=== PATIENT | female | born 1980 | race African-American/Black ===

== ENCOUNTER 2016-05-26 18:59 | Emergency (ER) | payer SELFPAY ==
[~2016-05-26] VITALS: Ht 180.3 cm; Wt 136.0 kg
[~2016-05-26 18:59] MED LIST: BACT800T5 PO; CEPH500C3 PO; IBUP800T23 PO; IMOD2TAB PO; ONDA4
[2016-05-26 19:02] VITALS: BP 163/78; PULSE 87; RESP 18; TEMP 98.7; O2SAT 100
[2016-05-27 02:48] LABS: BACTERIA, URINE MOD /hpf; BLOOD, URINE NEG (NEG); COMMENT (UR) CULTURE INDICATED; CULTURE IF INDICATED CULTURE INDICATED; GLUCOSE,URINE NEG (NEG); KETONE, URINE NEG (NEG); MUCUS URINE FEW /lpf (OCC); NITRITE,URINE NEG (NEG); PH, URINE 6.5 (5.0-8.5); SQUAMOUS EPITHELIAL CELL URINE 2 /hpf (0-5); URINE COLOR YELLOW (YELLW/STRAW)
[2016-05-27] MEDS ORDERED: LIDOCAINE HCL 1% 50 ML VIAL IM ONE (03:00)
[2016-05-27] MEDS ORDERED: AZITHROMYCIN PWD FOR SUSP 1 GM PACKET PO ONE (03:00)
--- NOTE | 2016-05-27 03:16 | PD ---
HPI Chief Complaint: Abdominal Pain Time Seen by Provider: 02:59 Travel History International Travel<30 days: No Contact w/Intl Traveler<30days: No Traveled to known affect area: No History of Present Illness HPI The patient is a 36 year old female who presents to the [facility] emergency department with a history of pelvic pressure and aching that she reports began 2 days after having unprotected intercourse. She reports that she then began to have vaginal discharge that was yellow to green in color with an odor. The patient reports that the pain has gradually gotten worse with time. She denies having any fevers associated with it. The patient reports having dysuria with urinary urgency and frequency associated with this. She denies having any back pain. The patient denies any cough, congestion, neck pain , chest pain, shortness of breath, vomiting, diarrhea, or neurologic symptoms. LMP: 3 weeks ago PFSH Past Medical History Narrative Medical The patient's past medical history is significant for fibroids, tobacco abuse Anemia: Yes Diminished Hearing: No Reproductive: Yes (uterine fibroids ) Tetanus Vaccination: < 5 Years Influenza Vaccination: No ?: Unknown Menopausal: No : 2 Para: 2 Tubal Ligation: Yes Past Surgical History Narrative Surgical The patient's past surgical history is significant for 2 prior C-sections, bilateral tubal ligation, cholecystectomy. Section: Yes (2) Cholecystectomy: Yes (2003) Social History Alcohol Use: No Tobacco Use: Yes (1-1/2 packs per day) Substance Use: No Allergies-Medications (Allergen,Severity, Reaction): Coded Allergies: Naproxen (Verified Allergy, Severe, Hives, swelling, 05/26/16) Reported Meds & Prescriptions Reported Meds & Active Scripts Active Bactrim DS (Sulfamethoxazole-Trimethoprim) 800-160 Mg Tab 1 Tab PO BID Flagyl (Metronidazole) 500 Mg Tab 500 Mg PO BID 7 Days Review of Systems Except as stated in HPI: all other systems reviewed are Neg General / Constitutional: No: Fever Eyes: No: Visual changes HENT: No: Headaches Cardiovascular: No: Chest Pain or Discomfort Respiratory: No: Shortness of Breath Gastrointestinal: Positive: Abdominal Pain, No: Nausea, Vomiting, Diarrhea, Changes in Bowel Habits, Indigestion, Loss of Appetite Genitourinary: Positive: Urgency, Frequency, Dysuria, Pelvic Pain, Discharge, No: Flank Pain Musculoskeletal: No: Pain Skin: No Rash Neurologic: No: Weakness Psychiatric: No: Depression Endocrine: No: Polydipsia Hematologic/Lymphatic: No: Easy Bruising Physical Exam Narrative General: The patient is a well-developed well-nourished female in no acute distress. Head and Neck exam: Head is normocephalic atraumatic. Eyes: Pupils are equal round and reactive to light. Nose: Midline septum with pink mucous membranes Mouth: Dentition unremarkable. Moist mucus membranes. Posterior oropharynx is not erythematous. No tonsillar hypertrophy. Uvula midline. Airway patent. Neck: No palpable lymphadenopathy. No nuchal rigidity. No thyromegaly. Cardiovascular: Regular rate and rhythm without murmurs, gallops, or rubs. No pulse deficit to the extremities. Lungs: Clear to auscultation bilaterally. No wheezes, rhonchi, or rales. Abdomen: Soft, with tenderness on palpation in the suprapubic area and bilateral lower quadrants of the abdomen, pelvic area. No tenderness specifically over McBurney 's point. Negative Hamm's sign. No guarding, rebound, or rigidity. Normal bowel sounds are audible. Extremities: No clubbing, cyanosis, or edema. Back: No spinous process tenderness to palpation. No costovertebral angle tenderness to palpation. Neurologic Exam: Grossly nonfocal Skin Exam: No rash noted. Intact skin that is warm and dry. Gynecologic exam: The patient was placed in the dorsal lithotomy position. Her external genitalia were examined. She had no evidence of rash or lesions. The speculum was placed into her vagina and the cervix was identified. She had a physiologic appearing and thick white discharge slightly discolored to yellow with cervical friability. On Bimanual exam: she has no cervical motion tenderness. No adnexal tenderness or prominence noted on palpation. No uterine tenderness or enlargement noted on palpation. Data Data Last Documented VS Vital Signs Date Time Temp Pulse Resp B/P Pulse Ox O2 Delivery O2 Flow Rate FiO2 05/26/16 20:48 16 05/26/16 19:02 98.7 87 163/78 100 Orders Urinalysis - C+S If Indicated (05/27/16 02:08) Gc And Chlamydia Pcr (05/27/16 02:18) Urine Culture (05/27/16 02:20) Wet Prep Profile (05/27/16 03:00) Azithromycin Powd Pack (Zithromax Powd P (05/27/16 03:00) Lidocaine 1% Inj (50 Ml) (Xylocaine 1% I (05/27/16 03:00) Ceftriaxone Inj (Rocephin Inj) (05/27/16 03:00) Ed Urine Pregnancytest Poc (05/27/16 03:16) Acetaminophen (Tylenol) (05/27/16 04:00) Labs Laboratory Tests Test 05/27/16 05/27/16 02:20 03:40 Urine Color YELLOW Urine Turbidity HAZY Urine pH 6.5 Urine Specific [place] 1.024 Urine Protein TRACE mg/dL Urine Glucose (UA) NEG mg/dL Urine Ketones NEG mg/dL Urine Occult Blood NEG Urine Nitrite NEG Urine Bilirubin NEG Urine Urobilinogen LESS THAN 2.0 MG/DL Urine Leukocyte Esterase LARGE Urine RBC 9 /hpf Urine WBC 49 /hpf Urine WBC Clumps OCC Urine Squamous Epithelial 2 /hpf Cells Urine Bacteria MOD /hpf Urine Mucus FEW /lpf Microscopic Urinalysis Comment CULTURE INDICATED Clue Cells (Wet Prep) NONE SEEN Vaginal Trichomonas (Wet Prep) PRESENT Vaginal Yeast (Wet Prep) NONE SEEN MDM Medical Decision Making Medical Screen Exam Complete: Yes Emergency Medical Condition: Yes Medical Record Reviewed: Yes Differential Diagnosis Gonorrhea versus chlamydia, versus trichomoniasis, versus bacterial vaginosis, versus PID, versus ectopic Narrative Course During the course of the patients emergency department visit, the patients history, examination, and differential diagnosis were reviewed with the patient. The patient had a [id number] test done that was negative, urine sent for analysis. GC and chlamydia and wet prep were sent after pelvic examination was done. The patient's pelvic examination was remarkable for cervicitis with a white discharge. The patient was given Rocephin 1 g IM as her urinalysis shows evidence of a urinary tract infection, and Zithromax 1 g by mouth for coverage of gonorrhea and chlamydia by both of these antibiotic. The patients laboratory studies were reviewed and remarkable for a wet prep that is positive for trichomoniasis. Urinalysis reveals evidence of a urinary tract infection. The patient will be discharged home with Bactrim and Flagyl. The patient is encouraged to use condoms for the prevention of sexually transmitted infections. The patient is resting comfortably and feels better, is alert and in no distress. The patients results and examination findings were discussed with the patient. The repeat examination is unremarkable and benign. The history, exam, diagnostic testing, and current condition do not suggest any significant pathology to warrant further testing, continued ED treatment, admission, or surgical evaluation at this point. The vital signs have been stable. The patient does not have uncontrollable pain, intractable vomiting, or other significant symptoms. The patient's condition is stable and appropriate for discharge. The patient will pursue further outpatient evaluation with a primary care physician or other designated or consulting physician as indicated in the discharge instructions. The patient expressed understanding and was agreeable with this plan. Diagnosis Primary Impression: Cervicitis Additional Impressions: Trichomoniasis Urinary tract infection Qualified Code: N30.00 - Acute cystitis without hematuria Referrals: [facility] Dept. Patient Instructions: Cervicitis (ED), General Instructions, Trichomoniasis (ED ), Urinary Tract Infection in Women (ED) Med/Other Pt SpecificInfo: Prescription(s) given Scripts Sulfamethoxazole-Trimethoprim (Bactrim DS)800-160 Mg Tab1 Tab PO BID #20 TAB Ref 0 Prov:Doris Escobar MD 05/27/16 Metronidazole (Flagyl)500 Mg [id number] Mg PO BID 7 Days Ref 0 Prov:Doris Escobar MD 05/27/16 Disposition: 01 DISCHARGE HOME Condition: Stable Doris Escobar MD May 27, 2016 03:16
[2016-05-27] MEDS ORDERED: ACETAMINOPHEN 325 MG TAB PO ONE (04:00)
[2016-05-27] MEDS ORDERED: METR-1 PO (04:13)
[2016-05-27] MEDS ORDERED: BACT800T5 PO (04:13)
[2016-05-27 04:39] LABS: CHLAMYDIA PCR NOT DETECTED (NOT DETECT); NEISSERIA PCR NOT DETECTED (NOT DETECT)
== END 2016-05-27 04:40 | disposition home or self-care (01) ==
LOC: NEPE 18:59
DX: N72 Inflammatory disease of cervix uteri (principal); A59.9 Trichomoniasis, unspecified; N30.00 Acute cystitis without hematuria; B96.89 Other specified bacterial agents as the cause of diseases classified elsewhere
CPT/HCPCS: 81001; 84703; 87086; 87210; 87491; 87591; 96372; 99284; J0696

== ENCOUNTER 2016-06-14 09:42 | Inpatient (IN) | payer SELFPAY ==
[~2016-06-14] VITALS: Ht 180.3 cm; Wt 120.3 kg
[~2016-06-14 09:42] MED LIST changes: -CEPH500C3 PO; -IBUP800T23 PO; -IMOD2TAB PO; +METR-1 PO; -ONDA4
[2016-06-14 09:44] VITALS: BP 124/67; PULSE 118; RESP 22; TEMP 97.8; O2SAT 98
[2016-06-14] MEDS ORDERED: LORazepam 1 MG TAB PO ONE (10:15)
--- NOTE | 2016-06-14 10:20 | PD ---
HPI Chief Complaint: Psychiatric Symptoms Time Seen by Provider: 10:08 Travel History International Travel<30 days: No Contact w/Intl Traveler<30days: No Traveled to known affect area: No History of Present Illness HPI The patient was seen and examined in the presence of the nurse. This patient is brought in by family members for psychiatric evaluation. She reports history of bipolar disorder. Very limited ability to provide history or review of systems. She is appearing to be actively psychotic. She reports that she is hearing voices. She denies feeling suicidal. Denies any specific physical complaint. Symptoms are moderate to severe in nature. Duration is unknown as she ignores the question. No alleviating factors. PFSH Past Medical History Anemia: Yes Bipolar Disorder: Yes Anxiety: Yes Depression: Yes Diminished Hearing: No Reproductive: Yes (uterine fibroids ) Schizophrenia: Yes Influenza Vaccination: No ?: Unknown Menopausal: No : 2 Para: 2 Tubal Ligation: Yes Past Surgical History Section: Yes (2) Cholecystectomy: Yes (2003) Social History Alcohol Use: No Tobacco Use: Yes (1-1/2 packs per day) Substance Use: No (FORMERLY COCAINE AND MARIJUANA) Allergies-Medications (Allergen,Severity, Reaction): Coded Allergies: Naproxen (Verified Allergy, Severe, Hives, swelling, 06/14/16) Reported Meds & Prescriptions Reported Meds & Active Scripts Active No Active Prescriptions or Reported Medications Review of Systems ROS Limitations: Altered Mental Status, Uncooperative, Psychotic, Poor Historian Physical Exam Narrative GENERAL: Well-nourished, well-developed patient in no apparent distress. SKIN: Warm and dry. HEAD: Atraumatic. Normocephalic. EYES: Pupils equal and round. No scleral icterus. No injection or drainage. ENT: No nasal bleeding or discharge. Mucous membranes pink and moist. NECK: Trachea midline. No JVD. CARDIOVASCULAR: Regular rate and rhythm. No murmur appreciated. RESPIRATORY: No accessory muscle use. Clear to auscultation. Breath sounds equal bilaterally. GASTROINTESTINAL: Abdomen soft, non-tender, nondistended. Hepatic and splenic margins not palpable. MUSCULOSKELETAL: No obvious deformities. No clubbing. No cyanosis. No edema. NEUROLOGICAL: Awake and alert. No obvious cranial nerve deficits. Motor grossly within normal limits. Pressured but understandable speech. PSYCHIATRIC: Somewhat agitated mood and affect; insight and judgment poor. Data Data Last Documented VS Vital Signs Date Time Temp Pulse Resp B/P Pulse Ox O2 Delivery O2 Flow Rate FiO2 06/14/16 09:44 97.8 118 22 124/67 98 Orders Complete Blood Count With Diff (06/14/16 10:14) Basic Metabolic Panel (Bmp) (06/14/16 10:14) Ed Urine Pregnancytest Poc (06/14/16 10:14) Psych Screen (06/14/16 10:14) Drug Screen, Random Urine (06/14/16 10:14) Alcohol (Ethanol) (06/14/16 10:14) Lorazepam (Ativan) (06/14/16 10:15) Labs Laboratory Tests Test 06/14/16 10:15 White Blood Count 8.0 TH/MM3 Red Blood Count 4.67 MIL/MM3 Hemoglobin 11.1 GM/DL Hematocrit 34.0 % Mean Corpuscular Volume 72.7 FL Mean Corpuscular Hemoglobin 23.7 PG Mean Corpuscular Hemoglobin 32.6 % Concent Red Cell Distribution Width 14.7 % Platelet Count 240 TH/MM3 Mean Platelet Volume 8.1 FL Neutrophils (%) (Auto) 71.0 % Lymphocytes (%) (Auto) 20.5 % Monocytes (%) (Auto) 6.2 % Eosinophils (%) (Auto) 1.6 % Basophils (%) (Auto) 0.7 % Neutrophils # (Auto) 5.7 TH/MM3 Lymphocytes # (Auto) 1.6 TH/MM3 Monocytes # (Auto) 0.5 TH/MM3 Eosinophils # (Auto) 0.1 TH/MM3 Basophils # (Auto) 0.1 TH/MM3 CBC Comment AUTO DIFF Differential Comment AUTO DIFF CONFIRMED Platelet Estimate NORMAL Platelet Morphology Comment NORMAL Target Cells 2+ Sodium Level 138 MEQ/L Potassium Level 3.9 MEQ/L Chloride Level 104 MEQ/L Carbon Dioxide Level 24.6 MEQ/L Anion Gap 9 MEQ/L Blood Urea Nitrogen 8 MG/DL Creatinine 0.71 MG/DL Estimat Glomerular Filtration 111 ML/MIN Rate Random Glucose 93 MG/DL Calcium Level 8.8 MG/DL Urine Opiates Screen POS Urine Barbiturates Screen NEG Urine Amphetamines Screen NEG Urine Benzodiazepines Screen NEG Urine Cocaine Screen POS Urine Cannabinoids Screen NEG Ethyl Alcohol Level LESS THAN 3 MG/DL MDM Medical Decision Making Medical Screen Exam Complete: Yes Emergency Medical Condition: Yes Medical Record Reviewed: Yes Differential Diagnosis Psychosis, bipolar exacerbation, adjustment disorder Narrative Course I have reviewed the patient's electronic medical record. Patient was seen here last year getting colposcopy and cone biopsy I've ordered a medical screening workup CBC is normal Metabolic profile is normal Urine is negative Toxicology screen is positive for cocaine Alcohol level is negative I gave her 2 mg oral Ativan to help calm her down I've ordered psychiatric evaluation On recheck she is calmer after Ativan. It seems like she has a combination of psychiatric and substance abuse problems. She is is medically stable as can be made. Disposition will be per psychiatry after screening. Scripts No Active Prescriptions or Reported Meds Chet Ulloa MD Jun 14, 2016 10:19
[2016-06-14 10:34] LABS: AUTOMATED NEUTROPHIL # 5.7 TH/MM3 (1.8-7.7); BASOPHIL # 0.1 TH/MM3 (0-0.2); BASOPHIL % 0.7 % (0.0-2.0); EOSINOPHIL # 0.1 TH/MM3 (0-0.4); EOSINOPHIL % 1.6 % (0.0-4.0); LYMPH % 20.5 % (9.0-44.0); LYMPHOCYTE # 1.6 TH/MM3 (1.0-4.8); MEAN CELL VOLUME 72.7 FL (80.0-100.0); MEAN CORPUSCULAR HEMOGLOBIN 23.7 PG (27.0-34.0); MEAN CORPUSCULAR HGB CONC 32.6 % (32.0-36.0); MONO % 6.2 % (0.0-8.0); PLATELET COUNT 240 TH/MM3 (150-450); RED BLOOD COUNT 4.67 MIL/MM3 (4.00-5.30); RED CELL DISTRIBUTION WIDTH 14.7 % (11.6-17.2)
[2016-06-14 10:35] LABS: HEMO FLAGS AUTO DIFF
[2016-06-14 10:42] LABS: AMPHETAMINE, URINE NEG (NEG); BARBITURATES, URINE NEG (NEG); COCAINE, URINE POS (NEG)
[2016-06-14 10:52] LABS: ANION GAP 9 MEQ/L (5-15); BICARBONATE 24.6 MEQ/L (21.0-32.0); BLOOD UREA NITROGEN 8 MG/DL (7-18); CHLORIDE 104 MEQ/L (98-107); GLOMERULAR FILTRATION RATE 111 ML/MIN (>89); POTASSIUM 3.9 MEQ/L (3.5-5.1); SODIUM (NA) 138 MEQ/L (136-145)
[2016-06-14 11:06] LABS: TARGET CELLS 2+ (NORMAL)
[2016-06-14 11:07] LABS: PLATELET ESTIMATE SMEAR NORMAL (NORMAL); PLATELET MORPHOLOGY NORMAL (NORMAL); SCAN/DIFF AUTO DIFF CONFIRMED
[2016-06-14 13:24] VITALS: BP 117/88; PULSE 102; RESP 18; TEMP 95.6; O2SAT 99
[2016-06-14] MEDS ORDERED: QUEtiapine FUMARATE 25 MG TAB PO STA (14:09)
[2016-06-14] MEDS ORDERED: LORazepam 2 MG/ML VIAL IM PRN (14:15)
[2016-06-14] MEDS ORDERED: MAGNESIUM HYDROXIDE SUSP 30 ML CUP PO PRN (14:15)
[2016-06-14] MEDS ORDERED: ALUMINUM/MAGNESIUM/SIMETH 30 ML CUP PO PRN (14:15)
--- NOTE | 2016-06-14 14:31 | HHI.HP ---
Provisional Diagnosis Admission Date [place] I. Schizoaffective disorder bipolar type F 25.10, opiate abuse episodic F 11.10, cocaine abuse F 14.10, substance-induced mood disorder F 19.94 Certification of Person's Competence To Provide Express and Informed Consent I have personally examined Eva ShankarCharley , a person being served at [facility] on, Jun 14, 2016 14:14. Express and informed consent means consent voluntarily given in writing, by a competent person, after sufficient explanation and disclosure of the subject matter involved to enable the person to make a knowing and willful decision without any element of force, fraud, deceit, duress, or other form of constraint or coercion. This person is 18 years of age or older, is not now known to be incompetent to consent to treatment with a guardian advocate, and does not have a health care surrogate or proxy currently making medical treatment decisions. I have found this person to be one of the following: [] Competent to provide express and informed consent, as defined above, for voluntary admission to this facility and is competent to provide express and informed consent for treatment. He/she has the consistent capacity to make well reasoned, willful, and knowing decisions concerning his or her medical or mental health treatment. The person fully and consistently understands the purpose of the admission for examination/placement and is fully capable of personally exercising all rights assured under [place] [] Incompetent to provide express and informed consent to voluntary admission, and this is incompetent to provide express and informed consent to treatment. The person must be transferred to involuntary status and a petition for a guardian advocate filed with the Circuit Court. [x] Refusing to provide express and informed consent to voluntary admission but is competent to provide express and informed consent for treatment. The person must be discharged or transferred to involuntary status. Form shall be completed within 24 hours of a person's arrival at the receiving facility and filed in the clinical record of each person: 1. Admitted on a voluntary basis 2. Permitted to provide express and informed consent to his/her own treatment 3. Allowed to transfer from involuntary to voluntary status 4. Prior to permitting a person to consent to his or her own treatment after having been previously found incompetent to consent to treatment. History of Present Illness Capacity: Has Capacity HPI Patient is a 36-year-old Afro-Tajik female initially was brought to the ED by her family asking for psychiatric evaluation due to patient's appearing markedly disorganized and psychotic. Patient seen screened in ED urine toxicology positive for cocaine and opiates. Our EMR reviewed at this the first mental health assessment for this patient, she has had multiple other visits for basically gynecological issues. Patient seen in her room on J pod nurse telling present throughout session patient markedly distraught anxious the markedly dysarthric speech somewhat gasping at times markedly disorganized. At times but marked thought blocking and other times with brief coherent sentences. Is somewhat confusing better living situation it appears she lives with a female relative at this time the request of the stability of that situation, she does acknowledge multiple drug use though her she states her drug of choice is opiates. She also acknowledges frequent cocaine use as the powder. She denies any other drug use at this time though she is vague about alcohol. She does acknowledge be inclined at [facility] seeing perhaps a nurse practitioner there though she also states noncompliance medication for significant period of time. She acknowledges increased auditory hallucinations of a somewhat command nature that appear to be giving her marked emotional distress. Been unable to ascertain at this time if there is no history of physical or sexual abuse or mental health history in the family. Patient also trying some mild confusion and disorientation as to place time and situation. She appears to know she is in the hospital she is uncertain about the city, she knows she is in [place], she doesn't 2017. At this time patient does meet criteria for acute psychiatric hospitalization, though she as initially come in as a voluntary patient I feel she does not have the capacity at this time to make an appropriate decision concerning the admission this I will initiate a Amador act, I will also do a first opinion petition supporting the Amador act requests a second opinion. I do feel she has capacity to make tissues considering her treatment. Will start on 50 mg Seroquel now and then 25 mg 8 AM noon and 4 PM with 100 mg at bedtime. Will get a hospice consult was also to assess for any medical issues. Attempt to reach patient's family she thick images me for treatment team tomorrow morning Review of Systems ROS Limitations: Altered Mental Status Other Patient denies any other review of systems problems Past Psych History Psychological trauma history Unable to ascertain at this time Violence risk - others (6 mos) Unable to ascertain at this time Violence risk - self (6 mos) Vague suicidal ideation perhaps secondary to command hallucinations Substance Abuse History Drugs/Alcohol past 12 months Patient states opiate and cocaine use Past Family Social History Coded Allergies: Naproxen (Verified Allergy, Severe, Hives, swelling, 06/14/16) Past Medical History Medically cleared ED patient states nonspecific Discontinued Scripts Sulfamethoxazole-Trimethoprim (Bactrim DS)800-160 Mg Tab1 Tab PO BID #20 TAB Ref 0 Prov:Doris Escobar MD 05/27/16 Metronidazole (Flagyl)500 Mg [id number] Mg PO BID 7 Days Ref 0 Prov:Doris Escobar MD 05/27/16 Current Medications Medications (Trade) Dose Ordered Sig/Colin Route Start Time Stop Time Status Last Admin (Ativan) 1 mg Q6H PRN PO 06/14/16 14:15 UNV (Ativan Inj) 1 mg Q6H PRN IM 06/14/16 14:15 UNV (Tylenol) 650 mg Q4H PRN PO 06/14/16 14:15 UNV (Milk Of Magnesia Liq) 30 ml DAILY PRN PO 06/14/16 14:15 UNV (Mag-Al Plus Susp Liq) 30 ml Q6H PRN PO 06/14/16 14:15 UNV (Atarax) 50 mg Q6H PRN PO 06/14/16 14:15 UNV (SEROquel) 25 mg TID@08,12,16 PO 06/14/16 16:00 UNV (SEROquel) 100 mg HS PO 06/14/16 21:00 UNV Family History Unable to ascertain Social History Patient lives with female family member appears to be somewhat chaotic Patient's Strengths (min. 2) Patient able to access healthcare appears to have supportive family Physical Exam Patient seen screened in ED exam reviewed and agreed with vital signs blood pressure 117/88 pulse 102 respirations 18 Vital Signs Vital Signs Date Time Temp Pulse Resp B/P Pulse Ox O2 Delivery O2 Flow Rate FiO2 06/14/16 13:24 95.6 102 18 117/88 99 Mental Status Examination Alert heavyset Afro-Tajik female sitting is somewhat aroused anxious state and in her room on J pod with nurse telling present she is attempting to be cooperative though she is somewhat hyperventilating anxious but somewhat dysarthric disorganized speech with poor eye contact Appearance Somewhat disheveled Speech: Rapid, Hesitant, Stuttering, Incoherent (at times) Orientation: Person, Place ([place]), Date (June) Memory: Impaired (describe) Thought Process: Loose Association, Other (disorganized) Thought Content: Paranoid (command hallucinations) Hallucination Type: Auditory (command hallucinations) Suicidal Ideation: Yes (vague perhaps responding to internal stimuli) Previous Suicide Attempts: No Homicidal Ideation: No Previous Homicide Attempts: No Insight: Poor Judgement: Poor Affect: Other (increased range and intensity) Mood: Anxious, Other (labile) Motor Activity: Normal gait Assessment & Plan Problem List: (1) Opiate abuse, episodic ICD Code: F11.10 (2) Substance induced mood disorder ICD Code: F19.94 (3) Cocaine abuse ICD Code: F14.10 (4) Schizoaffective disorder, bipolar type ICD Code: F25.0 Assessment & Plan Estimated LOS: 5-7 days the patient initially came on a voluntary basis I feel patient does not have a capacity I will initiate a Amador act, I will do first opinion petition supporting that Amador act. However she does have capacity to work with us with medication. Will offer Seroquel as mentioned above. Attempted to reach patient's family to think ultimately treatment team meeting tomorrow we will also have hospitalist consult with us Discharge Planning To be determined Request HC Surrog/Guard Advoc?: No Tremayne Pérez MD Jun 14, 2016 14:31
[2016-06-14 15:50] VITALS: BP 148/76; PULSE 102; RESP 18; O2SAT 100
[2016-06-14] MEDS: QUEtiapine FUMARATE 25 MG TAB PO SCH (16:00)
[2016-06-14 16:45] LABS: FERRITIN 25 NG/ML (8-252); TRANSFERRIN IRON PROFILE 280 MG/DL (200-360)
[2016-06-14] MEDS: QUEtiapine FUMARATE 100 MG TAB PO SCH (20:47)
[2016-06-15 06:43] VITALS: BP 147/82; PULSE 102; RESP 20; TEMP 97.9; O2SAT 96
[2016-06-15 07:19] LABS: AUTOMATED NEUTROPHIL # 3.6 TH/MM3 (1.8-7.7); BASOPHIL # 0.1 TH/MM3 (0-0.2); BASOPHIL % 1.1 % (0.0-2.0); EOSINOPHIL # 0.1 TH/MM3 (0-0.4); EOSINOPHIL % 1.7 % (0.0-4.0); HEMATOCRIT 33.6 % (35.0-46.0); LYMPH % 26.4 % (9.0-44.0); LYMPHOCYTE # 1.5 TH/MM3 (1.0-4.8); MEAN CELL VOLUME 73.1 FL (80.0-100.0); MEAN CORPUSCULAR HEMOGLOBIN 23.3 PG (27.0-34.0); MEAN CORPUSCULAR HGB CONC 31.9 % (32.0-36.0); MONO % 7.4 % (0.0-8.0); NEUT % 63.4 % (16.0-70.0); PLATELET COUNT 246 TH/MM3 (150-450); RED BLOOD COUNT 4.59 MIL/MM3 (4.00-5.30); RED CELL DISTRIBUTION WIDTH 14.7 % (11.6-17.2); WHITE BLOOD COUNT 5.6 TH/MM3 (4.0-11.0)
[2016-06-15 07:22] LABS: HEMO FLAGS AUTO DIFF
[2016-06-15 07:58] LABS: ALT (GPT) 19 U/L (10-53); ANION GAP 6 MEQ/L (5-15); AST (GOT) 15 U/L (15-37); BICARBONATE 27.6 MEQ/L (21.0-32.0); BLOOD UREA NITROGEN 6 MG/DL (7-18); CHLORIDE 110 MEQ/L (98-107); GLOMERULAR FILTRATION RATE 135 ML/MIN (>89); POTASSIUM 3.9 MEQ/L (3.5-5.1); SODIUM (NA) 144 MEQ/L (136-145)
[2016-06-15 08:00] LABS: SCAN/DIFF AUTO DIFF CONFIRMED; TARGET CELLS 1+ (NORMAL)
[2016-06-15 08:08] LABS: ALKALINE PHOSPHATASE 50 U/L (45-117); FREE T4 1.14 NG/DL (0.76-1.46); TOTAL BILIRUBIN ADULT 0.3 MG/DL (0.2-1.0)
[2016-06-15] MEDS: QUEtiapine FUMARATE 25 MG TAB PO SCH ×4 (09:17→16:00)
--- NOTE | 2016-06-15 10:31 | PD.CONS ---
HPI Service [facility] Hospitalists Consult Requested By Psychiatry. Reason for Consult Anemia, medical management. Primary Care Physician No Primary Care Physician Diagnoses: (1) Microcytic hypochromic anemia (2) Schizoaffective disorder, bipolar type History of Present Illness Ms. Shankar is 36 year old female with a history of uterine fibroids who is currently undergoing psychiatric treatments for markedly disorganized and psychotic behavior. Hospitalist service was consulted for medical management. Patient reports regular menstrual cycle but she reports heavy bleeding during her menstruation. She also reports fibroids. Denies any chest pain, shortness of breath, fatigue, fever, chills. Denies any changes in bowel or bladder habits. She has taken Iron supplements before but it makes her constipated and thus does not want to take Iron supplements at this point. She also wants to continue smoking once she is discharged. Review of Systems ROS Limitations: Other (Negative except as noted in the HPI. ) Past Family Social History Allergies: Coded Allergies: Naproxen (Verified Allergy, Severe, Hives, swelling, 06/14/16) Past Medical History Uterine fibroids. Heavy menstruation. Past Surgical History 2 C-sections Cholecystectomy Reported Medications Current Medications Lorazepam (Ativan) 2 mg ONCE ONCE PO Last administered on 06/14/16t 10:36; Start 06/14/16 at 10:15; Stop 06/14/16 at 10:16; Status DC Lorazepam (Ativan) 1 mg Q6H PRN PO MODERATE TO SEVERE ANXIETY; Start 06/14/16 at 14:15 Lorazepam (Ativan Inj) 1 mg Q6H PRN IM MODERATE TO SEVERE ANXIETY; Start at 14:15 Acetaminophen (Tylenol) 650 mg Q4H PRN PO Pain 1-5 or Temp >101F; Start at 14:15 Magnesium Hydroxide (Milk Of Magnesia Liq) 30 ml DAILY PRN PO CONSTIPATION; Start 06/14/16 at 14:15 Al Hydrox/Mg Hydrox/Simethicone (Mag-Al Plus Susp Liq) 30 ml Q6H PRN PO DYSPEPSIA; Start 06/14/16 at 14:15 Hydroxyzine HCl (Atarax) 50 mg Q6H PRN PO ANXIETY; Start 06/14/16 at 14:15 Quetiapine Fumarate (SEROquel) 50 mg ONCE STAT PO Last administered on 14:09; Start 06/14/16 at 14:09; Stop 06/14/16 at 14:19; Status DC Quetiapine Fumarate (SEROquel) 25 mg TID@08,12,16 PO Last administered on 09:17; Start 06/14/16 at 16:00 Quetiapine Fumarate (SEROquel) 100 mg HS PO Last administered on 06/14/16 20:47 ; Start 06/14/16 at 21:00 Aripiprazole (Abilify) 5 mg HS PO ; Start 06/15/16 at 21:00 Family History Mother had hysterectomy Father was addicted to drugs. Social History Smokes 1-2 ppd, denies using drugs or alcohol. UDS positive for opiates and cocaine. Physical Exam Vital Signs Vital Signs Date Time Temp Pulse Resp B/P Pulse Ox O2 Delivery O2 Flow Rate FiO2 06/15/16 06:43 97.9 102 20 147/82 96 06/14/16 15:50 102 18 148/76 100 06/14/16 13:24 95.6 102 18 117/88 99 Physical Exam GENERAL: This is a well-nourished, well-developed patient, in no apparent distress. SKIN: No rashes, ecchymoses or lesions. Warm and dry. HEAD: Atraumatic. Normocephalic. No temporal or scalp tenderness. EYES: Pupils equal round and reactive. No injection or drainage. ENT: Nose without bleeding, purulent drainage or septal hematoma. Airway patent. NECK: Trachea midline. No lymphadenopathy. Supple, nontender, no meningeal signs. CARDIOVASCULAR: Regular rate and rhythm without murmurs, gallops, or rubs. No JVD. RESPIRATORY: Clear to auscultation. Breath sounds equal bilaterally. No wheezes , rales, or rhonchi. GASTROINTESTINAL: Abdomen soft, non-tender, nondistended. No guarding. MUSCULOSKELETAL: Extremities without clubbing, cyanosis, or edema. NEUROLOGICAL: Awake and alert. Cranial nerves II through XII intact. No focal neurological deficits. Normal speech. Laboratory Laboratory Tests Test 06/15/16 07:01 White Blood Count 5.6 Red Blood Count 4.59 Hemoglobin 10.7 Hematocrit 33.6 Mean Corpuscular Volume 73.1 Mean Corpuscular Hemoglobin 23.3 Mean Corpuscular Hemoglobin 31.9 Concent Red Cell Distribution Width 14.7 Platelet Count 246 Mean Platelet Volume 7.8 Neutrophils (%) (Auto) 63.4 Lymphocytes (%) (Auto) 26.4 Monocytes (%) (Auto) 7.4 Eosinophils (%) (Auto) 1.7 Basophils (%) (Auto) 1.1 Neutrophils # (Auto) 3.6 Lymphocytes # (Auto) 1.5 Monocytes # (Auto) 0.4 Eosinophils # (Auto) 0.1 Basophils # (Auto) 0.1 CBC Comment AUTO DIFF Differential Comment AUTO DIFF CONFIRMED Target Cells 1+ Sodium Level 144 Potassium Level 3.9 Chloride Level 110 Carbon Dioxide Level 27.6 Anion Gap 6 Blood Urea Nitrogen 6 Creatinine 0.60 Estimat Glomerular Filtration 135 Rate Random Glucose 87 Calcium Level 8.7 Total Bilirubin 0.3 Aspartate Amino Transf 15 (AST/SGOT) Alanine Aminotransferase 19 (ALT/SGPT) Alkaline Phosphatase 50 Total Protein 6.6 Albumin 2.9 Free Thyroxine 1.14 Thyroid Stimulating Hormone 0.157 3rd Gen Result Diagram: 06/15/16 0701 06/15/16 07 Assessment and Plan Problem List: (1) Schizoaffective disorder, bipolar type ICD Code: F25.0 Status: Acute (2) Microcytic hypochromic anemia ICD Code: D50.9 Status: Acute (3) Tobacco abuse ICD Code: Z72.0 Status: Acute (4) Polysubstance abuse ICD Code: F19.10 Status: Acute Assessment and Plan Ms. Shankar is a 36 year old female with a history of uterine fibroids, heavy menstruation who is currently under the care of psychiatry service due to disorganized thoughts and psychosis. Hospitalist service was consulted for anemia and medical management. - Schzioaffective disorder, bipolar type - management per psychiatry team. - Microcytic hypochromic anemia - MCV 73.1, Iron saturation 18.1%. - Patient reports constipation on using Iron supplements before. Thus, she is not interested to take Iron pills for now. - If agrees, we would recommend Ferrous sulfate 325mg Qday with orange juice or Vitamin C tablets. - Regular follow up with her Supervisor Fur Floor Worker doctor would be recommended upon discharge. - Mild tachycardia - possibly due to anxiety vs. Cocaine abuse. No pharmacological treatments at this point. - Tobacco abuse - Polysubstance abuse - Patient denies using any illicit drugs. Counselled patient regarding tobacco abuse. She is not interested to quit smoking. She plans to smoke after she is discharged. Thank you for the consult. We will sign off. Please call us with any additional questions. Patient can be discharged from medical standpoint. Gabriela Pickard DO Jun 15, 2016 10:31 am
--- NOTE | 2016-06-15 11:11 | HHI.PYPN ---
Subjective Remarks Patient remains markedly psychotic, confused and loose. She is unable to carry on a cogent or coherent conversation. She exhibits thought blocking. Review of Systems ROS Limitations: Clinical Condition Except as stated in HPI: all other systems reviewed are Neg Objective Alert: Yes [place]: Person Mood: Anxious Affect: Restricted Memory Intact: Immediate Hallucinations: Auditory Delusions: Yes Delusion Type: Paranoid, Other Suicidal: Ideation Homicidal: Ideation Insight/Judgement Markedly impaired and patient unable to care for self. Labs Test 06/15/16 07:01 White Blood Count 5.6 TH/MM3 Red Blood Count 4.59 MIL/MM3 Hemoglobin 10.7 GM/DL Hematocrit 33.6 % Mean Corpuscular Volume 73.1 FL Mean Corpuscular Hemoglobin 23.3 PG Mean Corpuscular Hemoglobin 31.9 % Concent Red Cell Distribution Width 14.7 % Platelet Count 246 TH/MM3 Mean Platelet Volume 7.8 FL Neutrophils (%) (Auto) 63.4 % Lymphocytes (%) (Auto) 26.4 % Monocytes (%) (Auto) 7.4 % Eosinophils (%) (Auto) 1.7 % Basophils (%) (Auto) 1.1 % Neutrophils # (Auto) 3.6 TH/MM3 Lymphocytes # (Auto) 1.5 TH/MM3 Monocytes # (Auto) 0.4 TH/MM3 Eosinophils # (Auto) 0.1 TH/MM3 Basophils # (Auto) 0.1 TH/MM3 CBC Comment AUTO DIFF Differential Comment AUTO DIFF CONFIRMED Target Cells 1+ Sodium Level 144 MEQ/L Potassium Level 3.9 MEQ/L Chloride Level 110 MEQ/L Carbon Dioxide Level 27.6 MEQ/L Anion Gap 6 MEQ/L Blood Urea Nitrogen 6 MG/DL Creatinine 0.60 MG/DL Estimat Glomerular Filtration 135 ML/MIN Rate Random Glucose 87 MG/DL Calcium Level 8.7 MG/DL Total Bilirubin 0.3 MG/DL Aspartate Amino Transf 15 U/L (AST/SGOT) Alanine Aminotransferase 19 U/L (ALT/SGPT) Alkaline Phosphatase 50 U/L Total Protein 6.6 GM/DL Albumin 2.9 GM/DL Free Thyroxine 1.14 NG/DL Thyroid Stimulating Hormone 0.157 uIU/ML 3rd Gen Vitals/IOs Vital Signs Date Time Temp Pulse Resp B/P Pulse Ox O2 Delivery O2 Flow Rate FiO2 06/15/16 06:43 97.9 102 20 147/82 96 Assessment & Plan Problem List: (1) Schizoaffective disorder, bipolar type ICD Code: F25.0 (2) Opiate abuse, episodic ICD Code: F11.10 (3) Substance induced mood disorder ICD Code: F19.94 (4) Cocaine abuse ICD Code: F14.10 Assessment & Plan Estimated LOS: days patient to be started on antipsychotic medicine and titrated up to therapeutic dose. She will still be monitored for withdrawal from substances. It is anticipated she'll be in the hospital for 7 days. Justification for Cont. Inpt. Patient is psychotic and disorganized and significantly unable to care for self. Request HC Surrog/Guard Advoc?: No Everton Kohler MD Jun 15, 2016 11:11
[2016-06-15 15:15] VITALS: BP 161/85; PULSE 67; RESP 18; TEMP 98.8; O2SAT 100
[2016-06-15] MEDS: ARIPiprazole 5 MG TAB PO SCH (20:04)
[2016-06-15] MEDS: QUEtiapine FUMARATE 100 MG TAB PO SCH (20:04)
[2016-06-16 06:08] VITALS: BP 155/76; PULSE 78; RESP 18; TEMP 97.5; O2SAT 100
[2016-06-16] MEDS: QUEtiapine FUMARATE 25 MG TAB PO SCH ×3 (08:00→16:00)
--- NOTE | 2016-06-16 11:09 | HHI.PYPN ---
Subjective Remarks Patient was seen and discussed with the staff development manager. Patient reported that she has been doing much better with the medication. She denied any active auditory or visual hallucinations but occasionally she does admit to hearing voices and responding to internal stimuli. But no behavior or management problem reported. No side effects were reported either. Patient slept okay. Continue with the same treatment. Patient would like to go home soon once she is better able to control her behavior and her symptoms. Review of Systems Except as stated in HPI: all other systems reviewed are Neg Psychiatric: COMPLAINS OF: Mood changes, Depression, Hallucinations, Delusions Objective Alert: Yes [place]: Person, Place Mood: Calm, Depressed Affect: Restricted Memory Intact: Immediate, Recent Hallucinations: Auditory Delusions: Yes Delusion Type: Paranoid Suicidal: Ideation (denied any suicidal ideation intentions or plan) Homicidal: Ideation (denies) Insight/Judgement Fair to limited Vitals/IOs Vital Signs Date Time Temp Pulse Resp B/P Pulse Ox O2 Delivery O2 Flow Rate FiO2 06/16/16 06:08 97.5 78 18 155/76 100 Assessment & Plan Problem List: (1) Schizoaffective disorder, bipolar type ICD Code: F25.0 (2) Opiate abuse, episodic ICD Code: F11.10 (3) Substance induced mood disorder ICD Code: F19.94 (4) Cocaine abuse ICD Code: F14.10 Assessment & Plan Estimated LOS: days Justification for Cont. Inpt. Monitoring other medication observation of the withdrawal symptoms and stabilization on the medication risk of decompensation Request HC Surrog/Guard Advoc?: No Demetrio Bowers MD Jun 16, 2016 11:09
[2016-06-16 15:21] VITALS: BP 162/78; PULSE 91; RESP 18; TEMP 98.4; O2SAT 97
[2016-06-16 20:25] VITALS: BP 164/86; PULSE 106; RESP 20; TEMP 98.4; O2SAT 97
[2016-06-16] MEDS: QUEtiapine FUMARATE 100 MG TAB PO SCH (20:31)
[2016-06-16] MEDS: ARIPiprazole 5 MG TAB PO SCH (20:31)
[2016-06-16] MEDS: LORazepam 1 MG TAB PO PRN (20:31)
[2016-06-16 21:00] VITALS: BP 160/85; PULSE 101; RESP 20
[2016-06-17] MEDS: hydrOXYzine HCL 50 MG TAB PO PRN ×2 (00:07→20:05)
[2016-06-17] MEDS: ACETAMINOPHEN 325 MG TAB PO PRN (00:07)
[2016-06-17 06:38] VITALS: BP 160/85; PULSE 79; RESP 18; TEMP 98.2; O2SAT 96
[2016-06-17] MEDS: QUEtiapine FUMARATE 25 MG TAB PO SCH ×4 (08:14→15:48)
--- NOTE | 2016-06-17 12:06 | HHI.PYPN ---
Subjective Remarks Patient remains delusional and easily agitated. She wants to check out of the hospital and states she has been told she may leave. However, this physician has not provided and he noticed that she may leave. She remains without adequate resources and the ability to care for herself. Review of Systems ROS Limitations: Clinical Condition Except as stated in HPI: all other systems reviewed are Neg Objective Alert: Yes [place]: Person, Place Mood: Agitated, Depressed Affect: Restricted Memory Intact: Immediate, Recent Hallucinations: Auditory Delusions: Yes Delusion Type: Paranoid Suicidal: Ideation (denied any suicidal ideation intentions or plan) Homicidal: Ideation (denies) Insight/Judgement She remains very limited regarding insight and judgment. Vitals/IOs Vital Signs Date Time Temp Pulse Resp B/P Pulse Ox O2 Delivery O2 Flow Rate FiO2 06/17/16 06:38 98.2 79 18 160/85 96 Assessment & Plan Problem List: (1) Schizoaffective disorder, bipolar type ICD Code: F25.0 (2) Opiate abuse, episodic ICD Code: F11.10 (3) Substance induced mood disorder ICD Code: F19.94 (4) Cocaine abuse ICD Code: F14.10 Assessment & Plan This physician feels the patient needs at least several more days of medication management. Estimated LOS: days Justification for Cont. Inpt. Patient remains paranoid, unable to care for herself and unable to work with others. Request HC Surrog/Guard Advoc?: No Everton Kohler MD Jun 17, 2016 12:06
[2016-06-17] MEDS: LORazepam 1 MG TAB PO PRN (15:48)
[2016-06-17 17:59] VITALS: BP 141/95; PULSE 99; RESP 18; TEMP 98.5; O2SAT 100
[2016-06-17] MEDS: ARIPiprazole 5 MG TAB PO SCH (20:03)
[2016-06-17] MEDS: QUEtiapine FUMARATE 100 MG TAB PO SCH (20:03)
[2016-06-18] MEDS: ACETAMINOPHEN 325 MG TAB PO PRN (01:34)
[2016-06-18] MEDS: LORazepam 1 MG TAB PO PRN (01:37)
[2016-06-18 05:12] VITALS: BP 151/72; PULSE 100; RESP 18; TEMP 98; O2SAT 98
[2016-06-18] MEDS: QUEtiapine FUMARATE 25 MG TAB PO SCH ×2 (08:00→12:00)
[2016-06-18] MEDS ORDERED: QUET1TAB8 PO (13:40)
[2016-06-18] MEDS ORDERED: ARIP1TAB11 PO (13:40)
--- NOTE | 2016-06-18 13:40 | HHI.DS ---
Psychiatry Discharge Summary Inpatient Psychiatric care?: Yes Advance Directive: No Reason Not Provided: Due to Patient Condition Mental Health AdvanceDirective: No Health Care Proxy: No Admission Admission Date Jun 14, 2016 at 14:29 Admission Diagnosis: (1) Opiate abuse, episodic ICD Code: F11.10 (2) Cocaine abuse ICD Code: F14.10 (3) Schizoaffective disorder, bipolar type ICD Code: F25.0 (4) Substance induced mood disorder ICD Code: F19.94 Brief History Patient is a 36-year-old Afro-[place] female initially was brought to the ED by her family asking for psychiatric evaluation due to patient's appearing markedly disorganized and psychotic. Patient seen screened in ED urine toxicology positive for cocaine and opiates. Our EMR reviewed at this the first mental health assessment for this patient, she has had multiple other visits for basically gynecological issues. Patient seen in her room on J pod nurse telling present throughout session patient markedly distraught anxious the markedly dysarthric speech somewhat gasping at times markedly disorganized. At times but marked thought blocking and other times with brief coherent sentences. Is somewhat confusing better living situation it appears she lives with a female relative at this time the request of the stability of that situation, she does acknowledge multiple drug use though her she states her drug of choice is opiates. She also acknowledges frequent cocaine use as the powder. She denies any other drug use at this time though she is vague about alcohol. She does acknowledge be inclined at [facility] seeing perhaps a nurse practitioner there though she also states noncompliance medication for significant period of time. She acknowledges increased auditory hallucinations of a somewhat command nature that appear to be giving her marked emotional distress. Been unable to ascertain at this time if there is no history of physical or sexual abuse or mental health history in the family. Tobacco Use In Past 30 Days: Refused To Answer Alcohol Use: Never Hospital Course Patient was admitted to a locked, inpatient psychiatric unit. Appropriate precautions were in place throughout patient's hospital stay. A general medical consultation was obtained. Patient was seen and examined daily on the unit by psychiatry and also visited by counselor. Medications were adjusted. Patient tolerated medications well without side effects except to that she refused to the daytime doses of Seroquel saying they made her too sleepy. Patient's presenting psychiatric symptoms improved during the course for hospital stay. On the day of discharge: Patient seen and examined with nurse. Chart reviewed. Case discussed with nursing staff who reports patient's thought process and mental status generally a much clearer today than in previous days. On my examination today, the patient is calm and pleasant on examination. Her thought process is linear and logical and there is no evidence of ongoing psychosis. She denies any audiovisual hallucinations and I can elicit no delusional beliefs. She denies any suicidal or homicidal ideation on direct questioning. She says that she believes that she experienced a psychiatric decompensation because "I'm in love with a woman and I want her all to myself. She keeps promising me that she'll leave her ," but the patient feels that this other woman has been stringing the patient along. Patient says that she became so frustrated that she abused substances, and this led to her psychotic decompensation. No reported issues with mood. She is tolerating psychotropics well without side effects, except that she does not want to take the daytime doses of Seroquel as noted above. She denies any physical complaints. She is requesting discharge from the inpatient psychiatric unit today. The patient's case was presented to the [place] act court by Dr. Préez and Dr. Kohler as they attended primarily on her case up until today, when I would have assumed care of the patient as she is presently hospitalized on the 2700 unit. The preschool assistant teacher has ordered the patient's release from the inpatient psychiatric unit. Given that the patient is requesting discharge from the unit and given that we have no basis to retain her involuntarily, I will discharge the patient today was psychiatric follow-up as arranged by counselor. Patient is also follow-up with primary care and with ELECTRONIC INTELLIGENCE OFFICER as recommended by the hospitalist internal consultant. I have prescribed only the nighttime dose of Seroquel and Abilify as patient says she has no interest in taking the daytime doses of these medications for fear that they would interfere with her ability to work. Results Blood Pressure 151 / 72 Vital Signs Date Time Temp Pulse Resp B/P Pulse Ox O2 Delivery O2 Flow Rate FiO2 06/18/16 05:12 98.0 100 18 151/72 98 Item Value Date Time White Blood Count 5.6 TH/MM3 06/15/16 0701 Hemoglobin 10.7 GM/DL L 06/15/16 0701 Platelet Count 246 TH/MM3 06/15/16 0701 Sodium Level 144 MEQ/L 06/15/16 0701 Potassium Level 3.9 MEQ/L 06/15/16 0701 Chloride Level 110 MEQ/L H 06/15/16 0701 Carbon Dioxide Level 27.6 MEQ/L 06/15/16 0701 Anion Gap 6 MEQ/L 06/15/16 0701 Blood Urea Nitrogen 6 MG/DL L 06/15/16 0701 Creatinine 0.60 MG/DL 06/15/16 0701 Random Glucose 87 MG/DL 06/15/16 0701 Iron Level 71 MCG/DL 06/14/16 1015 Total Iron Binding Capacity 392 MCG/DL 06/14/16 1015 Percent Iron Saturation 18.1 % L 06/14/16 1015 Ferritin 25 NG/ML 06/14/16 1015 Aspartate Amino Transf (AST/SGOT) 15 U/L 06/15/16 0701 Alanine Aminotransferase (ALT/SGPT) 19 U/L 06/15/16 0701 Alkaline Phosphatase 50 U/L 06/15/16 0701 Free Thyroxine 1.14 NG/DL 06/15/16 0701 Thyroid Stimulating Hormone 3rd Gen 0.157 uIU/ML L 06/15/16 0701 Urine Opiates Screen POS H 06/14/16 1015 Urine Cocaine Screen POS H 06/14/16 1015 Ethyl Alcohol Level LESS THAN 3 MG/DL 06/14/16 1015 Summary of Procedures None done Imaging None done Pending results at discharge: No Medications # of Antipsychotic meds at D/C: 2 Appropriate >1 Antipsych meds?: 4 Approp Antipsych med options 1 - Minimum of three failed multiple trials of monotherapy. 2 - Documented plan to taper to monotherapy due to previous use of multiple meds OR cross-taper in progress at D/C. 3 - Documentation of augmentation of Clozapine. 4 - Justification other than those listed in allowable values 1-3, document here : Regimen as Rx'd by Drs. Kohler/Elisa. Discharge Discharge Date: Jun 18, 2016 Discharge Diagnosis: (1) Psychosis Diagnosis: Principal (resolved) ICD Code: F29 (2) Polysubstance abuse Diagnosis: Secondary ICD Code: F19.10 Mental Status Exam at Disch Patient is in hospital gown. She is well groomed. She is awake and alert and oriented 3. No abnormal motor movements noted. Speech is within normal limits for rate, tone and volume. Language and fund of knowledge are average. Mood is good and affect is full and reactive. Thought process linear. No loosening of associations. No evident delusions. Denies audiovisual hallucinations. Denies suicidal or homicidal ideation. Insight and judgment seem fair. Pt Condition on Discharge: Stable Discharge Disposition: Discharge Home Discharge Instructions Diet Instructions: As Tolerated, No Restrictions Activities you can perform: Weight Bearing as [place] Scheduled Appointment: Mani Santamaria Appointment Date: Jun 22, 2016 Appointment Time: 7:30am New Medications: Aripiprazole (Aripiprazole) 5 Mg Tab 5 MG PO HS Mental Health Days 15 Ref 1 TAB Quetiapine (Quetiapine) 100 Mg Tab 100 MG PO HS Mental Health Days 15 Ref 1 TAB Discharge Time > 30 minutes Discharge/Advance Care Plan Health Problems: (1) Schizoaffective disorder, bipolar type (2) Opiate abuse, episodic (3) Substance induced mood disorder (4) Cocaine abuse Goals to promote your health * To prevent worsening of your condition and complications * To maintain your health at the optimal level Directions to meet your goals Take your medications as prescribed Follow your dietary instruction Follow activity as directed Keep your appointments as scheduled Take your immunizations and boosters as scheduled If your symptoms worsen call your PCP, if no PCP go to Urgent Care Center or Emergency Room For 02/11 questions related to your inpatient stay or results of tests pending at discharge, please contact Dr. Michael Kimble at Smoking is Dangerous to Your Health. Avoid second hand smoking Problem Qualifiers (1) Psychosis: Qualified Code: F29 - Psychosis, unspecified psychosis type Michael Kimble MD Jun 18, 2016 13:40
== END 2016-06-18 14:30 | disposition home or self-care (01) | DRG 885 ==
LOC: NEPE 09:42 → NEDA 14:29 → H270 15:29
PROVIDERS: ADMIT Psychiatry & Neurology Psychiatry; ATTEND Psychiatry & Neurology Psychiatry
DX: F25.0 Schizoaffective disorder, bipolar type (principal); Z91.14 Patient's other noncompliance with medication regimen; F19.94 Other psychoactive substance use, unspecified with psychoactive substance-induced mood disorder; F11.10 Opioid abuse, uncomplicated; F14.10 Cocaine abuse, uncomplicated; F17.210 Nicotine dependence, cigarettes, uncomplicated; D50.9 Iron deficiency anemia, unspecified; D25.9 Leiomyoma of uterus, unspecified
CPT/HCPCS: 80048; 80053; 80307; 80320; 82728; 83540; 83550; 84439; 84443; 84703; 85025; 99284

== ENCOUNTER 2017-05-22 07:37 | Emergency (ER) | payer SELFPAY ==
[~2017-05-22] VITALS: Ht 180.3 cm; Wt 79.5 kg
[~2017-05-22 07:37] MED LIST changes: +ARIP1TAB11 PO; -BACT800T5 PO; -METR-1 PO; +QUET1TAB8 PO
[2017-05-22 07:38] VITALS: BP 151/71; PULSE 87; RESP 14; TEMP 98.7; O2SAT 100
--- NOTE | 2017-05-22 08:29 | PD ---
HPI Chief Complaint: Cold / Flu Symptoms Time Seen by Provider: 07:52 Travel History International Travel<30 days: No Contact w/Intl Traveler<30days: No Traveled to known affect area: No History of Present Illness HPI 37-year-old female presents to the emergency Department with complaint of cough , nasal congestion, chest congestion, shortness of breath 2 weeks. Reports wheezing. Saw streaks of blood in her nasal congestion and sputum yesterday and became concerned. Denies gurpreet blood. Denies chest pain. Reports subjective fevers with hot and cold flashes. Denies sick contacts. Denies throat pain, ear pain. Reports vomiting for the past 2 days. Denies diarrhea or abdominal pain. Reports tobacco use. Symptoms are mild in severity. Has been taking NyQuil, DayQuil, TheraFlu, Tylenol for symptom management. No known aggravating or relieving factors. No sick contacts. No primary care provider. Allergies to naproxen. Denies significant past medical history. Has no other medical complaints. No other modifying factors or associated signs and symptoms. PFSH Past Medical History Anemia: Yes Bipolar Disorder: Yes Anxiety: Yes Depression: Yes Diminished Hearing: No Psychiatric: Yes Reproductive: Yes (uterine fibroids ) Schizophrenia: Yes LMP: APRIL 2017 Menopausal: No : 2 Para: 2 Tubal Ligation: Yes Past Surgical History Section: Yes (2) Cholecystectomy: Yes (2003) Social History Alcohol Use: No Tobacco Use: Yes (1-1/2 packs per day) Substance Use: No (FORMERLY COCAINE AND MARIJUANA) Allergies-Medications (Allergen,Severity, Reaction): Coded Allergies: naproxen (Unverified Allergy, Severe, Hives, swelling, 05/22/17) Reported Meds & Prescriptions Reported Meds & Active Scripts Active Azithromycin 500 Mg Tab 500 Mg PO DAILY Ventolin Hfa 18 GM Inh (Albuterol Sulfate) 90 Mcg/Act Aer 2 Puff INH Q4-6H PRN Deltasone (Prednisone) 20 Mg Tab 40 Mg PO DAILY 4 Days start 05/23/2017 Quetiapine (Quetiapine Fumarate) 100 Mg Tab 100 Mg PO HS 15 Days Aripiprazole 5 Mg Tab 5 Mg PO HS 15 Days Review of Systems Except as stated in HPI: all other systems reviewed are Neg Physical Exam Narrative GENERAL: Well-nourished, well-developed black female patient, in no acute distress; afebrile, nontoxic-appearing SKIN: Warm and dry. HEAD: Atraumatic. Normocephalic. EYES: Pupils equal and round. No scleral icterus. No injection or drainage. ENT: Mucosa pink and moist. No erythema or exudates. No uvular edema. No uvular , palatal, or tonsillar deviation. Airway patent. Nares without nasal blood, purulent drainage or septal hematoma. EARS: Bilateral pinnae and external canals appear within normal limits. Bilateral tympanic membranes without erythema, dullness or perforation. NECK: Trachea midline. No lymphadenopathy. CARDIOVASCULAR: Regular rate and rhythm. No murmur appreciated. RESPIRATORY: No accessory muscle use. Lungs with mild Wheezing in bilateral bases to auscultation. Breath sounds equal bilaterally. No retractions or tachypnea. No Audible wheezing noted. Continuous dry cough. GASTROINTESTINAL: Abdomen soft, non-tender, nondistended. Hepatic and splenic margins not palpable. Bowel sounds are active 4 quadrants. MUSCULOSKELETAL: No obvious deformities. No clubbing. No cyanosis. No edema. NEUROLOGICAL: Awake and alert. Oriented 3. No obvious cranial nerve deficits. Motor grossly within normal limits. Normal speech. Moves all extremities. 5/5 strength to all extremities. PSYCHIATRIC: Appropriate mood and affect; insight and judgment normal. Data Data Last Documented VS Vital Signs Date Time Temp Pulse Resp B/P (MAP) Pulse Ox O2 Delivery O2 Flow Rate FiO2 05/22/17 07:38 98.7 87 14 151/71 (97) 100 Orders Orders Chest, Single Ap (05/22/17 07:53) Influenzae A/B Antigen (05/22/17 07:53) Prednisone (Deltasone) (05/22/17 08:30) Albuterol Neb (Albuterol Neb) (05/22/17 08:30) Ondansetron Odt (Zofran Odt) (05/22/17 08:30) MDM Medical Decision Making Medical Screen Exam Complete: Yes Emergency Medical Condition: Yes Medical Record Reviewed: Yes Differential Diagnosis Influenza, bronchitis, pneumonia, URI Narrative Course 37-year-old female with cough/cold/flu symptoms 2 weeks. Patient is afebrile and nontoxic-appearing. Lungs with mild wheezing in bilateral bases and patient with continuous dry cough on exam. No acute distress. No audible wheezing. No retractions or tachypnea. Chest x-ray, albuterol nebulizer, Deltasone, influenza ordered. 0830: Patient complaining of feeling nauseated and requesting something for relief. Zofran ordered. 0835: Influenza negative. 0851: Chest x-ray with no acute findings. On reexamination lungs are clear and equal throughout. Patient has decreased cough. Denies shortness of breath. Deltasone, Ventolin inhaler, azithromycin, Tessalon Perles prescribed for home. Instructed patient to follow up with primary care provider. Patient verbalizes understanding and agreement with treatment plan. Patient is medically cleared and stable for discharge. Discussed reasons to return to the emergency department. Patient agrees with treatment plan. The patients vital signs are stable and the patient is stable for outpatient follow-up and treatment. Patient discharged home, stable and in no acute distress. Diagnosis Primary Impression: Acute bronchitis Qualified Codes: J20.9 - Acute bronchitis, unspecified Additional Impression: Upper respiratory infection Qualified Codes: J06.9 - Acute upper respiratory infection, unspecified Referrals: [facility] Primary Care Physician Patient Instructions: Acute Bronchitis (ED), General Instructions, Upper Respiratory Infection (ED) Departure Forms: Tests/Procedures, Work Release Enter return to work date: May 24, 2017 Additional Instructions: Ibuprofen or Tylenol as directed and as needed to reduce fever; may alternate ibuprofen and Tylenol as needed every 3 hours to minimize fever [id number] cold/flu medications as directed and as needed for symptom management Get plenty of sleep/rest Drink plenty of fluids to prevent dehydration; such as Gatorade, Powerade, Pedialyte [place] diet to encourage nutrition such as crackers, fruit, applesauce, toast, soup etc. Use an air humidifier/turn off ceiling fans Follow-up with your primary care provider within 1 day Return immediately to the emergency department with worsening of symptoms Med/Other Pt SpecificInfo: Prescription(s) given Scripts Mometasone Nasal Benson (Nasonex Nasal Benson) 50 Mcg/Act Naspr 2 SPRAY EACH NARE DAILY Y for NASAL CONGESTION, #1 BOTTLE 0 Refills Prov: Alyssa Marvin ASSISTANT MEDIA PLANNER 05/22/17 Benzonatate (Tessalon Perles) 100 Mg Cap 100 MG PO TID Y for COUGH, #10 CAP 0 Refills Prov: Alyssa Marvin ASSISTANT MEDIA PLANNER 05/22/17 Azithromycin (Azithromycin) 500 Mg Tab 500 MG PO DAILY for Infection, #5 TAB 0 Refills Prov: Alyssa MarvinP 05/22/17 Albuterol 18 GM Inh (Ventolin Hfa 18 GM Inh) 90 Mcg/Act Aer 2 PUFF INH Q4-6H Y for SOB/WHEEZING, #1 INHALER 0 Refills Prov: Alyssa Marvin 05/22/17 Prednisone (Deltasone) 20 Mg Tab 40 MG PO DAILY for 4 Days, #8 TAB 0 Refills start 05/23/2017 Prov: Alyssa Marvin 05/22/17 Disposition: 01 DISCHARGE HOME Condition: Stable Alyssa Marvin May 22, 2017 08:29
[2017-05-22] MEDS ORDERED: RESP: ALBUTEROL 2.5 MG/3 ML NEB (SCH) INH ONE (08:30)
[2017-05-22] MEDS ORDERED: predniSONE 20 MG TAB PO ONE (08:30)
[2017-05-22] MEDS ORDERED: ONDANSETRON ODT 4 MG TAB PO ONE (08:30)
[2017-05-22] MEDS ORDERED: AZIT500T2 PO (08:43)
[2017-05-22] MEDS ORDERED: VENTAER INH (08:43)
[2017-05-22] MEDS ORDERED: PRED-503 PO (08:43)
--- NOTE | 2017-05-22 08:43 | RADRPT ---
EXAM DATE/TIME: 05/22/2017 08:26 [place] COMPARISON: No previous studies available for comparison. INDICATIONS : Cough, chest pain and shortness of breath. MEDICAL HISTORY : Bronchitis. SURGICAL HISTORY : None. ENCOUNTER: Initial ACUITY: 2 weeks PAIN SCORE: 8/10 LOCATION: Bilateral chest FINDINGS: A single view of the chest demonstrates the lungs to be symmetrically aerated without evidence of mas s, infiltrate or effusion. The cardiomediastinal contours are unremarkable. Osseous structures are intact. CONCLUSION: Normal examination. Holly Liu MD on May 22, 2017 at 8:40 Board Certified Radiologist. This report was verified electronically.
[2017-05-22] MEDS ORDERED: BENZ100 PO (08:53)
[2017-05-22] MEDS ORDERED: MOME17I EACH NARE (08:54)
== END 2017-05-22 09:16 | disposition home or self-care (01) ==
LOC: NEPD 07:37
DX: J20.9 Acute bronchitis, unspecified (principal); J06.9 Acute upper respiratory infection, unspecified; R50.9 Fever, unspecified; R09.81 Nasal congestion; D64.9 Anemia, unspecified; F41.8 Other specified anxiety disorders; F20.9 Schizophrenia, unspecified; F17.210 Nicotine dependence, cigarettes, uncomplicated
CPT/HCPCS: 71045; 87804; 94664; 99284; J7512; J7613